=== PATIENT | female | born 1990 | race Caucasian/White ===

== ENCOUNTER 2016-08-01 22:37 | Emergency (ER) | payer SELFPAY ==
[2016-08-01 23:26] LABS: ASPARTATE AMINO TRANSFERASE 20 U/L (15-37); BLOOD UREA NITROGEN 14 mg/dL (7-18)
[2016-08-01 23:42] LABS: DAU SCREEN DISCLAIMER
[2016-08-02 00:34] VITALS: BP 107/61
== END 2016-08-02 01:25 | disposition home or self-care (01) ==
LOC: ED 23:59
DX: F43.0 Acute stress reaction (principal); F41.9 Anxiety disorder, unspecified; E66.9 Obesity, unspecified
CPT/HCPCS: 36415; 70450; 80053; 80307; 81003; 84703; 85025; 93005